=== PATIENT | male | born 1990 | race Caucasian/White ===

== ENCOUNTER 2017-06-25 18:22 | Emergency (ER) | payer BC ==
--- NOTE | 2017-06-25 19:17 | EDM.PDOC ---
ED HPI GENERAL MEDICAL PROBLEM - General Chief Complaint: Genitourinary Problem Stated Complaint: SWELLING IN PENIS Time Seen by Provider: 06/25/17 18:46 Source of Information: Reports: Patient History Limitations: Reports: No Limitations - History of Present Illness INITIAL COMMENTS - FREE TEXT/NARRATIVE: HISTORY AND PHYSICAL: History of present illness: Patient is a 26-year-old male who presents to the emergency room with complaints of penile swelling. He states he has noticed this on and off for the past several months after having sexual intercourse. He states that occasionally after sex the shaft of his penis will become painful, swell and the erythematous. Usually this resolves on its own within 1-2 hours. Morning he had sexual intercourse and noticed the symptoms which have not resolved over the past 10 hours. Denies any vigorous sexual activity. He states he is able to void without difficulty. Denies any dysuria or blood in his urine. Bowel movements are regular. Denies any abdominal pain, nausea, vomiting or diarrhea. Denies any testicular pain or swelling. Review of systems: As per history of present illness and below otherwise all systems reviewed and negative. Past medical history: As per history of present illness and as reviewed below otherwise noncontributory. Surgical history: As per history of present illness and as reviewed below otherwise noncontributory. Social history: No reported history of drug or alcohol abuse. Family history: As per history of present illness and as reviewed below otherwise noncontributory. Physical exam: Gen.: Nontoxic appearing 26-year-old male. Able to speak in full sentences without shortness of breath. Alert and oriented. HEENT: Atraumatic, normocephalic, pupils reactive, negative for conjunctival pallor or scleral icterus, mucous membranes moist, throat clear, neck supple, nontender, trachea midline. Lungs: Clear to auscultation, breath sounds equal bilaterally, chest nontender. Heart: S1S2, regular rate and rhythm Abdomen: Soft, nondistended, nontender. Negative for masses or hepatosplenomegaly. Negative for costovertebral tenderness. Pelvis: Stable nontender. Genitourinary: This was done with a masonry contractor at the bedside. The shaft of the penis appears erythematous, tender to palpation, moderate swelling noticed towards the distal end of the shaft of penis. There are no open sores, lesions or masses. The swelling does not appear to affect the meatus. No swelling or redness noted to the scrotum. No tenderness to the scrotum. Rectal: Deferred. Extremities: Atraumatic, negative for cords or calf pain. Neurovascular unremarkable. Neuro: Awake, alert, oriented. Cranial nerves II through XII unremarkable. Cerebellum unremarkable. Motor and sensory unremarkable throughout. Exam nonfocal. Patient reports that he is in a monogamous relationship over the past 5 years with his . His is at the bedside who is third trimester . She reports that she frequently gets checked and they have no concerns of STDs. She has no concerns of vaginal discharge, irritation or burning. We discussed that these symptoms may be allergy or contact related. Does not appear to be infectious. There are no lesions or satellite lesions which would make me feel this is fungal. Dr Olivera did look at the patient's genitalia with me. He agrees with plan of care. Mycolog will be prescribed to the applied twice daily over the next 3 days. He was informed to not participate any sexual activity while he is using this medication. He may use Benadryl [id number]-[id number] as needed. Instructed him to follow-up with Dr. Carrizales, the urologist for further management. Both patient and significant other are agreeable to plan of care and they deny any further questions at this time. Diagnostics: [] Therapeutics: [] Impression: [place] Plan: 1. Use the Mycolog cream twice daily 3 days. As we discussed do not have any sexual activity while using this topical cream. 2. Benadryl vbbj-lhl-pcmctbl as directed 3 days and then as needed after that. May apply gentle ice to the area to help decrease swelling 3. Follow-up with Dr. Carrizales, the urologist, for further management of these concerns. The ED as needed and as discussed. Definitive disposition and diagnosis as appropriate pending reevaluation and review of above. Penis Pain Score (Numeric/FACES): 6 - Related Data Allergies Allergy/AdvReac Type Severity Reaction Status Date / Time No Known Allergies Allergy Verified 06/25/17 18:51 Home Meds: Home Meds . [No Known Home Meds] 01/09/16 [History] Past Medical History - Past Health History Medical/Surgical History: Denies Medical/Surgical History Social & Family History - Family History Family Medical History: Noncontributory - Tobacco Use Smoking Status *Q: Current Every Day Smoker Years of Tobacco use: 12 Packs/Tins Daily: 1 - Recreational Drug Use Recreational Drug Use: Yes Drug Use in Last 12 Months: Yes Recreational Drug Type: Reports: Marijuana/Hashish ED ROS GENERAL - Review of Systems Review Of Systems: ROS reveals no pertinent complaints other than HPI. ED EXAM, RENAL/ - Physical Exam Exam: See Below (See dictation) Course - Vital Signs Last Recorded V/S: Last Vital Signs Temp 36.9 C 06/25/17 18:48 Pulse 80 06/25/17 18:48 Resp 16 06/25/17 18:48 BP 127/75 06/25/17 18:48 Pulse Ox 97 06/25/17 18:48 Departure - Departure Time of Disposition: 19:17 Disposition: Home, Self-Care 01 Clinical Impression: Balanitis - Discharge Information Referrals: PCP,None [Primary Care Provider] - Forms: ED Department Discharge Additional Instructions: My general discharge The following information is given to patients seen in the emergency department who are being discharged to home. This information is to outline your options for follow-up care. We provide all patients seen in our emergency department with a follow-up referral. The need for follow-up, as well as the timing and circumstances, are variable depending upon the specifics of your emergency department visit. If you don't have a primary care physician on staff, we will provide you with a referral. We always advise you to contact your personal physician following an emergency department visit to inform them of the circumstance of the visit and for follow-up with them and/or the need for any referrals to a consulting specialist. The emergency department will also refer you to a specialist when appropriate. This referral assures that you have the opportunity for follow-up care with a specialist. All of these measure are taken in an effort to provide you with optimal care, which includes your follow-up. Under all circumstances we always encourage you to contact your private physician who remains a resource for coordinating your care. When calling for follow-up care, please make the office aware that this follow-up is from your recent emergency room visit. If for any reason you are refused follow-up, please contact the [facility] Emergency Department at and asked to speak to the emergency department charge nurse. [facility] Professional Building [address] [place] [address], [address] [place] [address] 1. Use the Mycolog cream twice daily 3 days. As we discussed do not have any sexual activity while using this topical cream. 2. Benadryl hjqv-sbe-kimjycn as directed 3 days and then as needed after that. May apply gentle ice to the area to help decrease swelling 3. Follow-up with Dr. Carrizales, the urologist, for further management of these concerns. The ED as needed and as discussed.
[2017-06-25 19:27] VITALS: BP 123/73
== END 2017-06-25 19:29 | disposition home or self-care (01) ==
LOC: MW.ED 18:22
DX: N48.1 Balanitis (principal); F17.210 Nicotine dependence, cigarettes, uncomplicated
CPT/HCPCS: 99283; 99284

== ENCOUNTER 2019-05-22 21:28 | Emergency (ER) | payer BC ==
[2019-05-22] MEDS ORDERED: Ketorolac 60 MG/2 ML SDV IM ONE (21:51)
--- NOTE | 2019-05-22 21:56 | EDM.PDOC ---
ED HPI GENERAL MEDICAL PROBLEM - General Chief Complaint: Back Pain or Injury Stated Complaint: POSSIBLE KIDNEY INFECTION Time Seen by Provider: 05/22/19 21:36 - History of Present Illness INITIAL COMMENTS - FREE TEXT/NARRATIVE: HISTORY AND PHYSICAL: History of present illness: The patient is a 28-year-old male with no stated medical history but has had frequent episodes of lumbar lower back pain on and off over a long period of time, sometimes up to twice a week, for which he has seen a chiropractor but is never had a formal diagnosis of anything other than muscle strain and presents with bilateral lumbar back pain that is now radiating to his lower abdomen. He says that this discomfort started yesterday and he has had no direct trauma such as falls or blows to the area and is not flank pain and it is bilateral. He does not feel like it is in the bones and he has no radiation to his butt or his legs. He's had no bowel or bladder disturbances. He has been eating and drinking normally and he says that he was concerned because it radiated to his lower abdomen area and he feels very gassy. The patient says that he has had issues in the past with feeling bloated and gassy but again has not seen a provider for this. He's had nausea but no vomiting which again has been intermittent and not consistent. He's had no diarrhea and has been passing his urine normally without hematuria dysuria or frequency. He's had no fevers or chills and also complains of a dull headache. He has not taken any medications for this lower back pain in the last 24 hours and he says that when he gets these episodes of pain he doesn't take anything [id number] he usually does stretches and it improves. He came in tonight versus any other time he has had this because the stretching did not work and he had these other vague symptoms and he thought he should get it checked. He does not have a local provider. The patient also denies any testicular pain or swelling. Review of systems: As per history of present illness and below otherwise all systems reviewed and negative. Past medical history: As per history of present illness and as reviewed below otherwise noncontributory. Surgical history: As per history of present illness and as reviewed below otherwise noncontributory. Social history: No reported history of drug or alcohol abuse. Family history: As per history of present illness and as reviewed below otherwise noncontributory. Physical exam: General: Well-developed well-nourished man who is nontoxic and moves easily in the ED without distress. Vital signs were noted by me HEENT: Atraumatic, normocephalic, negative for conjunctival pallor or scleral icterus, mucous membranes moist, throat clear, neck supple, nontender, trachea midline. Lungs: Clear to auscultation, breath sounds equal bilaterally, chest nontender. Heart: S1S2, regular rate and rhythm no overt murmurs Abdomen: Soft, nondistended, nontender. Bowel sounds are slightly hyperactive and there is no tympany on percussion. Negative for masses or hepatosplenomegaly. Negative for costovertebral tenderness. Pelvis: Stable nontender. Genitourinary: Deferred. Rectal: Deferred. Extremities: Atraumatic, negative for cords or calf pain. Neurovascular unremarkable. Neuro: Awake, alert, oriented. Cranial nerves II through XII unremarkable. Cerebellum unremarkable. Motor and sensory unremarkable throughout. Exam nonfocal. Dorsi and plantar flexion is intact 5/5 inclusive of the great toe bilaterally and inversion and eversion of the feet is intact. Tone is normal and patellar reflexes are +2 over 4 Back: There are no midline step-offs tenderness defects of the thoracic or lumbar spine no posterior rib or posterior pelvis tenderness and no specific SI joint tenderness. The patient has mild discomfort with palpation of the lumbar paraspinals but there is no swelling defects or deformities. There is a negative straight leg rise bilaterally Diagnostics: CBC CMP UA with reflex abdominal x-rays lumbar spine x-rays Therapeutics: Toradol IM Patient is starting to feel better and is aware of all testing results including the incidental gallstones which have advised him about and the degenerative disc disease. In my conversation with this patient he does tell me that he does have very irregular bowel movements and is not eating a very fiber rich diet. Impression: Episodic lumbar back pain degenerative disc disease L5-S1 Nonspecific abdominal pain with constipation and incidental gallstones Definitive disposition and diagnosis as appropriate pending reevaluation and review of above. low back Pain Score (Numeric/FACES): 6 - Related Data Allergies Allergy/AdvReac Type Severity Reaction Status Date / Time No Known Allergies Allergy Verified 05/22/19 21:33 Home Meds: Home Meds . [No Known Home Meds] 01/09/16 [History] Past Medical History - Past Health History Medical/Surgical History: Denies Medical/Surgical History - Infectious Disease History Infectious Disease History: Reports: Chicken Pox - Past Surgical History Musculoskeletal Surgical History: Reports: Other (See Below) Other Musculoskeletal Surgeries/Procedures:: right knee sx Social & Family History - Family History Family Medical History: Noncontributory - Tobacco Use Smoking Status *Q: Current Every Day Smoker Years of Tobacco use: 15 Packs/Tins Daily: 1 - Recreational Drug Use Recreational Drug Use: No ED ROS GENERAL - Review of Systems Review Of Systems: ROS reveals no pertinent complaints other than HPI. ED EXAM, GENERAL - Physical Exam Exam: See Below (See dictation) Course - Vital Signs Last Recorded V/S: Last Vital Signs Temp 36.2 C 05/22/19 21:35 Pulse 61 05/22/19 21:35 Resp 18 05/22/19 21:35 BP 147/77 H 05/22/19 21:35 Pulse Ox 99 05/22/19 21:35 - Orders/Labs/Meds Labs: Laboratory Tests 05/22/19 05/22/19 05/22/19 Range/Units 21:50 22:17 22:17 WBC 9.16 (4.0-11.0) K/uL RBC 5.25 (4.50-5.90) M/uL Hgb 16.1 (13.0-17.0) g/dL Hct 46.0 (38.0-50.0) % MCV 87.6 (80.0-98.0) fL MCH 30.7 (27.0-32.0) pg MCHC 35.0 (31.0-37.0) g/dL RDW Std Deviation 44.8 (28.0-62.0) fl RDW Coeff of [place] 14 (11.0-15.0) % Plt Count 231 (150-400) K/uL MPV 10.20 (7.40-12.00) fL Neut % (Auto) 57.5 (48.0-80.0) % Lymph % (Auto) 32.4 (16.0-40.0) % [place] % (Auto) 8.4 (0.0-15.0) % Eos % (Auto) 1.3 (0.0-7.0) % Baso % (Auto) 0.4 (0.0-1.5) % Neut # (Auto) 5.3 (1.4-5.7) K/uL Lymph # (Auto) 3.0 H (0.6-2.4) K/uL [place] # (Auto) 0.8 (0.0-0.8) K/uL Eos # (Auto) 0.1 (0.0-0.7) K/uL Baso # (Auto) 0.0 (0.0-0.1) K/uL Nucleated RBC % 0.0 /100WBC Nucleated RBCs # 0 K/uL Sodium 141 (136-148) mmol/L Potassium 4.7 (3.5-5.1) mmol/L Chloride 102 (98-107) mmol/L Carbon Dioxide 29.1 (21.0-32.0) mmol/L BUN 18 (7.0-18.0) mg/dL Creatinine 1.1 (0.8-1.3) mg/dL Est Cr Clr Drug Dosing 111.98 mL/min Estimated GFR (MDRD) > 60.0 ml/min Glucose 113 H (74-106) mg/dL Calcium 8.9 (8.5-10.1) mg/dL Total Bilirubin 1.0 (0.2-1.0) mg/dL AST 17 (15-37) IU/L ALT 22 (14-63) IU/L Alkaline Phosphatase 66 (46-116) U/L Total Protein 7.6 (6.4-8.2) g/dL Albumin 4.3 (3.4-5.0) g/dL Globulin 3.3 (2.6-4.0) g/dL Albumin/Globulin Ratio 1.3 (0.9-1.6) Urine Color YELLOW Urine Appearance CLEAR Urine pH 6.0 (5.0-8.0) Ur Specific [place] 1.025 (1.001-1.035) Urine Protein NEGATIVE (NEGATIVE) mg/dL Urine Glucose (UA) NEGATIVE (NEGATIVE) mg/dL Urine Ketones TRACE H (NEGATIVE) mg/dL Urine Occult Blood NEGATIVE (NEGATIVE) Urine Nitrite NEGATIVE (NEGATIVE) Urine Bilirubin NEGATIVE (NEGATIVE) Urine Urobilinogen 0.2 (<2.0) EU/dL Ur Leukocyte Esterase NEGATIVE (NEGATIVE) Meds: Medications Discontinued Medications Generic Name Dose Route Start Last Admin Trade Name Clement PRN Reason Stop Dose Admin Ketorolac Tromethamine 60 mg 05/22/19 21:51 05/22/19 22:18 Toradol IM 05/22/19 21:52 60 mg ONETIME ONE Administration Departure - Departure Time of Disposition: 22:57 Disposition: Home, Self-Care 01 Condition: Good Clinical Impression: Degenerative disc disease at L5-S1 level, Lower abdominal pain - Discharge Information Referrals: PCP,None [Primary Care Provider] - Forms: ED Department Discharge Additional Instructions: The following information is given to patients seen in the emergency department who are being discharged to home. This information is to outline your options for follow-up care. We provide all patients seen in our emergency department with a follow-up referral. The need for follow-up, as well as the timing and circumstances, are variable depending upon the specifics of your emergency department visit. If you don't have a primary care physician on staff, we will provide you with a referral. We always advise you to contact your personal physician following an emergency department visit to inform them of the circumstance of the visit and for follow-up with them and/or the need for any referrals to a consulting specialist. The emergency department will also refer you to a specialist when appropriate. This referral assures that you have the opportunity for followup care with a specialist. All of these measure are taken in an effort to provide you with optimal care, which includes your followup. Under all circumstances we always encourage you to contact your private physician who remains a resource for coordinating your care. When calling for followup care, please make the office aware that this follow-up is from your recent emergency room visit. If for any reason you are refused follow-up, please contact the [facility] emergency department at and ask to speak to the emergency department charge nurse. Primary care- Internal Medicine and Family [address] [address] Try to do all body movements and position changes with slightly more time and more care and use good body mechanics to protect her back. These follow-up with one of our providers in the clinic for further caliber and evaluation of your episodes of back pain. Try to start eating a low-fat higher fiber diet due to the gallstones on your x-rays which is an incidental finding but that you should be aware of and follow-up for if you start having any upper abdominal pain. Use moty-sra-ntbsiqu Tylenol or ibuprofen for pain management as well as heat and ice or pain patches [id number]-[id number] as you choose for your back pain episodes. Return to ER as needed and as discussed. You may also take a fiber supplement or take an ziyd-yhb-syekfiq stool softener to assist movement of the stool seen in the x-rays and to keep your bowels more regular.
--- NOTE | 2019-05-22 22:16 | CR ---
Indication: Low back pain. Technique: Three views of the lumbar spine were obtained. Comparison: None Findings: The alignment of the lumbar spine is within normal limits. The vertebral body heights are well maintained. Intervertebral disc space narrowing is identified at L5-S1. No fracture or subluxation is identified. Impression: Degenerative changes of the lower lumbar spine. Dictated by Audra Joseph MD @ May 22 2019 10:15PM Signed by Dr. Audra Joseph @ May 22 2019 10:15PM
--- NOTE | 2019-05-22 22:18 | CR ---
Indication: Midabdominal pain. Technique: AP views of the abdomen and pelvis were obtained. Comparison: None Findings: No free air is identified. Gallstones are identified in the right upper quadrant. The bowel gas pattern is nonobstructive. A small to moderate amount of stool is identified within the colon. Impression: Gallstones. Dictated by Audra Joseph MD @ May 22 2019 10:16PM Signed by Dr. Audra Joseph @ May 22 2019 10:16PM
[2019-05-22 22:45] LABS: BLOOD UREA NITROGEN,BUN 18 mg/dL (7.0-18.0); CARBON DIOXIDE,CO2 29.1 mmol/L (21.0-32.0); CHLORIDE,CL 102 mmol/L (98-107); GLUCOSE RANDOM 113 mg/dL (74-106); POTASSIUM,K 4.7 mmol/L (3.5-5.1); SODIUM,NA 141 mmol/L (136-148)
[2019-05-22 23:02] VITALS: BP 137/92; PULSE 66
== END 2019-05-22 23:05 | disposition home or self-care (01) ==
LOC: MW.ED 21:28
DX: M51.37 Other intervertebral disc degeneration, lumbosacral region (principal); K59.00 Constipation, unspecified; K80.80 Other cholelithiasis without obstruction; F17.210 Nicotine dependence, cigarettes, uncomplicated
CPT/HCPCS: 36415; 72100; 74019; 80053; 81003; 85025; 96372; 99284; J1885

== ENCOUNTER 2019-05-29 07:47 | Day surgery (SDC) | payer BC ==
[~2019-05-29 07:47] MED LIST: Glycopyrrolate 0.2 MG/ML SDV ONE; Lactated Ringers 1,000 ML IV SCH; Lidocaine 2% 5 ML SDV ONE; Midazolam 1 MG/ML 2 ML SDV ONE; Neostigmine Methylsulfate 1 MG/ML 5 ML Syringe ONE; Ondansetron 4 MG/2 ML SDV ONE; Propofol 200 MG/20 ML SDV ONE; cefOXitin 2 GM in Premix Bag 1 BAG IV ONE
[2019-05-29] MEDS ORDERED: Rocuronium 100 MG/10 ML Syringe ONE (07:48)
[2019-05-29] MEDS ORDERED: fentaNYL 250 MCG/5 ML SDV ONE (07:48)
[2019-05-29] MEDS ORDERED: Bupivacaine 0.5% 10 ML SDV ONE (08:11)
[2019-05-29] MEDS ORDERED: ceFAZolin 1 GM Vial ONE (08:12)
--- NOTE | 2019-05-29 08:18 | PCM.PREANE ---
Preanesthetic Assessment - Anesthesia/Transfusion/Family Hx Anesthesia History: Prior Anesthesia Without Reaction Family History of Anesthesia Reaction: No Transfusion History: No Prior Transfusion(s) - Review of Systems General: No Symptoms Pulmonary: No Symptoms Cardiovascular: No Symptoms Gastrointestinal: No Symptoms Neurological: No Symptoms Other: Reports: None - Physical Assessment NPO Status Date: 05/28/19 Vital Signs: Last Vital Signs Temp 97.2 F 05/29/19 08:03 Pulse 86 05/29/19 08:03 Resp 14 05/29/19 08:03 BP 137/67 05/29/19 08:03 Pulse Ox 100 05/29/19 08:03 Height: 6 ft 1 in Weight: 77.564 kg ASA Class: 2 Mental Status: Alert & Oriented x3 ROM/Head Extension: Full Lungs: Clear to Auscultation, Normal Respiratory Effort Cardiovascular: Regular Rate, Regular Rhythm - Allergies Allergies/Adverse Reactions: Allergies Allergy/AdvReac Type Severity Reaction Status Date / Time latex Allergy Rash Verified 05/25/19 16:37 - Blood Blood Available: No - Anesthesia Plan Pre-Op Medication Ordered: None - Acknowledgements Anesthesia Type Planned: General Anesthesia Pt an Appropriate Candidate for the Planned Anesthesia: Yes Alternatives and Risks of Anesthesia Discussed w Pt/Guardian: Yes Pt/Guardian Understands and Agrees with Anesthesia Plan: Yes Additional Comments: PMH: smoker PLAN: get PreAnesthesia Questionnaire - Past Health History Medical/Surgical History: Denies Medical/Surgical History HEENT History: Reports: None Cardiovascular History: Reports: None Respiratory History: Reports: Other (See Below) Other Respiratory History: 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 Gastrointestinal History: Reports: Cholelithiasis, Chronic Constipation, Other ( See Below) Other Gastrointestinal History: occasional heartburn Genitourinary History: Reports: None Musculoskeletal History: Reports: Fracture Other Musculoskeletal History: hx fx wrist Neurological History: Reports: Concussion Psychiatric History: Reports: None Endocrine/Metabolic History: Reports: None Hematologic History: Reports: None Immunologic History: Reports: None Oncologic (Cancer) History: Reports: None Dermatologic History: Reports: Other (See Below) Other Dermatologic History: ichthyosis - Infectious Disease History Infectious Disease History: Reports: Chicken Pox - Past Surgical History Head Surgeries/Procedures: Reports: None HEENT Surgical History: Reports: None Cardiovascular Surgical History: Reports: None Respiratory Surgical History: Reports: None GI Surgical History: Reports: None Male Surgical History: Reports: None Endocrine Surgical History: Reports: None Neurological Surgical History: Reports: None Musculoskeletal Surgical History: Reports: Arthroscopic Knee, Other (See Below) Other Musculoskeletal Surgeries/Procedures:: right knee sx Oncologic Surgical History: Reports: None Dermatological Surgical History: Reports: None - SUBSTANCE USE Smoking Status *Q: Current Every Day Smoker Tobacco Use Within Last Twelve Months: Cigarettes - HOME MEDS Home Medications: Home Meds Ketorolac [Toradol] 10 mg PO QID PRN 05/25/19 [History] Polyethylene Glycol 3350 [Miralax] 1 dose PO ASDIRECTED PRN 05/25/19 [History] - CURRENT (IN HOUSE) MEDS Current Meds: Current Medications Lactated Ringer's (Ringers, Lactated) 1,000 mls @ 125 mls/hr IV ASDIRECTED RUDY Last Admin: 05/29/19 08:10 Dose: 125 mls/hr Discontinued Medications Bupivacaine HCl (Sensorcaine-Mpf 0.5%) Confirm Administered Dose 30 ml .ROUTE .STK-MED ONE Stop: 05/29/19 08:12 Cefazolin Sodium (Ancef) Confirm Administered Dose 1 gm .ROUTE .STK-MED ONE Stop: 05/29/19 08:13 Fentanyl (Sublimaze) Confirm Administered Dose 250 mcg .ROUTE .STK-MED ONE Stop: 05/29/19 07:49 Glycopyrrolate (Robinul) Confirm Administered Dose 0.4 mg .ROUTE .STK-MED ONE Stop: 05/29/19 07:48 Cefoxitin Sodium 2 gm/ Premix 50 mls @ 100 mls/hr IV ONETIME ONE Stop: 05/29/19 07:29 Lidocaine (Xylocaine-Mpf 2%) Confirm Administered Dose 5 ml .ROUTE .STK-MED ONE Stop: 05/29/19 07:48 Midazolam HCl (Versed 1 Mg/Ml) Confirm Administered Dose 2 mg .ROUTE .STK-MED ONE Stop: 05/29/19 07:48 Neostigmine Methylsulfate (Neostigmine) Confirm Administered Dose 5 mg .ROUTE .STK-MED ONE Stop: 05/29/19 07:48 Ondansetron HCl (Zofran) Confirm Administered Dose 4 mg .ROUTE .STK-MED ONE Stop: 05/29/19 07:48 Propofol (Diprivan 20 Ml) Confirm Administered Dose 200 mg .ROUTE .STK-MED ONE Stop: 05/29/19 07:48 Rocuronium [place] (Zemuron) Confirm Administered Dose 100 mg .ROUTE .STK-MED ONE Stop: 05/29/19 07:49
[2019-05-29] MEDS ORDERED: Scopolamine 1.5 MG Transdermal Patch ONE (08:19)
[2019-05-29] MEDS ORDERED: cefOXitin 1 GM Vial ONE (08:59)
[2019-05-29] MEDS ORDERED: Dexamethasone 4 MG/ML 5 ML MDV ONE (09:07)
[2019-05-29] MEDS ORDERED: fentaNYL 100 MCG/2 ML SDV ONE (10:17)
[2019-05-29] MEDS ORDERED: Acetaminophen/HYDROcodone 325-5 MG Tab PO PRN (10:33)
[2019-05-29] MEDS ORDERED: Morphine 10 MG/ML Syringe IVPUSH PRN (10:33)
--- NOTE | 2019-05-29 10:39 | PCM.OPNOTE ---
- General Post-Op/Procedure Note Date of Surgery/Procedure: 05/29/19 Operative Procedure(s): Laparoscopic cholecystectomy Pre Op Diagnosis: Cholelithiasis Post-Op Diagnosis: Cholelithiasis with acute cholecystitis Anesthesia Technique: General ET Tube (ASA II) Primary Surgeon: Krishna Schmitt [employer] Supervisor: Ana Paula Peters Fluid Replacement, Intraop: 650 Output, Urine Amount: 125 EBL in mLs: 25 Condition: Good Free Text/Narrative:: DICTATION 239818 CPT CODE 81717
[2019-05-29] MEDS ORDERED: Ketorolac 30 MG/ML SDV ONE (10:40)
[2019-05-29] MEDS ORDERED: Lactated Ringers 1,000 ML IV SCH (10:45)
[2019-05-29] MEDS: HYDROmorphone 2 MG/ML Syringe IVPUSH ONE ×2 (10:59→11:08)
[2019-05-29] MEDS ORDERED: fentaNYL 100 MCG/2 ML SDV IVPUSH PRN (11:21)
--- NOTE | 2019-05-29 11:46 | PCM.POSTAN ---
POST ANESTHESIA ASSESSMENT - MENTAL STATUS Mental Status: Alert, Oriented - VITAL SIGNS Vital Signs: Last Vital Signs Temp 98.6 F 05/29/19 10:32 Pulse 84 05/29/19 11:22 Resp 15 05/29/19 11:22 BP 128/69 05/29/19 11:22 Pulse Ox 96 05/29/19 11:22 - RESPIRATORY Respiratory Status: Respiratory Rate WNL, Airway Patent, O2 Saturation Stable - CARDIOVASCULAR CV Status: Pulse Rate WNL, Blood Pressure Stable - GASTROINTESTINAL GI Status: No Symptoms - POST OP HYDRATION Hydration Status: Adequate & Stable
--- NOTE | 2019-05-29 13:58 | PCM48HPAN ---
Post Anesthesia Note - EVALUATION WITHIN 48HRS OF ANESTHETIC Vital Signs in Normal Range: Yes Patient Participated in Evaluation: Yes Respiratory Function Stable: Yes Airway Patent: Yes Cardiovascular Function Stable: Yes Hydration Status Stable: Yes Pain Control Satisfactory: Yes Nausea and Vomiting Control Satisfactory: Yes Mental Status Recovered: Yes Vital Signs: Last Vital Signs Temp 98.8 F 05/29/19 11:30 Pulse 81 05/29/19 12:45 Resp 14 05/29/19 12:45 BP 127/61 05/29/19 12:45 Pulse Ox 97 05/29/19 12:45
--- NOTE | 2019-05-29 14:51 | OR ---
SURGEON: Krishna Schmitt M.D. DATE OF PROCEDURE: 05/29/2019 OPERATION PERFORMED: Laparoscopic cholecystectomy. PRIMARY SURGEON: Krishna Schmitt M.D. NURSING MANAGER: bankruptcy assistant: TARSHA Meng, assistant professor student. ANESTHESIA: General endotracheal. ASA CLASSIFICATION: II. PREOPERATIVE DIAGNOSIS: Symptomatic cholelithiasis. POSTOPERATIVE DIAGNOSIS: Cholelithiasis with acute cholecystitis and multiple adhesions to the gallbladder. ESTIMATED BLOOD LOSS: 25 mL. INTRAOPERATIVE FLUID REPLACEMENT: 650 mL of crystalloid. INTRAOPERATIVE URINE OUTPUT: 125 mL. DESCRIPTION OF PROCEDURE: The patient was taken to the operating room, placed on the operating table in the supine position. Time-out was called for appropriate identification of the patient and procedure. Thigh-high TEDs and sequential compression boots were placed. Following satisfactory attainment of general endotracheal anesthesia, a Graves catheter was placed in the patient's urinary bladder. The abdomen was then prepped with DuraPrep solution and sterile drapes were applied. The skin just below the umbilicus was infiltrated with 0.5% Marcaine solution. The skin incision was made and deepened through the subcutaneous tissue obtaining hemostasis with the use of electrocautery. The Veress needle was introduced into the peritoneal cavity. Saline drop test was positive. Carbon dioxide pneumoperitoneum was established with the relief set at 13 cm of water. Once a satisfactory pneumoperitoneum was established, 5 mm camera and port were placed through the infraumbilical incision. The patient was now positioned with his feet down and rolled to the left. Under camera vision, 12 mm subxiphoid, 5 mm midclavicular, and 5 mm anterior axillary ports were placed. Each incision had preemptively been infiltrated with 0.5% Marcaine solution. Small bleeding sites had been electrocoagulated. Multiple adhesions were present through the gallbladder. These were taken down with blunt dissection. Once the gallbladder was mobilized, I was able to grasp this with 2-prong grasper. Our dissection was carried into the Calot's cystohepatic triangle where the cystic duct and cystic artery were serially identified. Good critical view of each structure was obtained prior to hemoclipping. Each structure was doubly hemoclipped proximally and distally before division with the laparoscopic Metzenbaum scissor. Using the hook cautery, the gallbladder was dissected away from its bed. A small amount of bile but no stones were spilled. Once the gallbladder was amputated, this was placed in an EndoCatch and maintained in situ. The right upper quadrant was irrigated with 1% Ancef solution and all fluid was aspirated. Surgicel was placed into the bed of the gallbladder. The right hemidiaphragm was then irrigated with 250 mL of saline containing 20 mL of 0.5% Marcaine solution. That fluid was left in place. Under camera vision, the EndoCatch containing gallbladder was removed through the 12 mm port site. Again, under camera vision, both 5 mm midclavicular and anterior axillary ports were removed, and finally, the infraumbilical camera and port were removed. Wounds were inspected for hemostasis and small bleeding sites were electrocoagulated. The 12 mm port site fascia had to be opened a little bit more to allow for removal of the gallbladder. The fascial defect was then repaired with interrupted 0 Vicryl sutures. The subxiphoid and infraumbilical incisions were closed in 2 layers approximating the subcutaneous tissue with 3-0 Vicryl and the skin with subcuticular 4-0 Monocryl. The anterior axillary and midclavicular incisions were closed with subcuticular 4-0 Monocryl. All incisions were Steri-Stripped and dressed with sterile Tegaderm pads. Graves catheter was removed prior to emergence from anesthesia. Following emergence from anesthesia and extubation, the patient was taken to recovery room in stable condition. KENRICK PAGAN /[id number] FRENCH
[2019-05-29 15:58] VITALS: BP 123/70; PULSE 78
== END 2019-05-29 15:58 | disposition home or self-care (01) ==
LOC: MW.SDS 07:47
PROVIDERS: ATTEND Surgery
DX: K80.12 Calculus of gallbladder with acute and chronic cholecystitis without obstruction (principal); K82.8 Other specified diseases of gallbladder; M51.37 Other intervertebral disc degeneration, lumbosacral region; F17.210 Nicotine dependence, cigarettes, uncomplicated; Z79.899 Other long term (current) drug therapy
CPT/HCPCS: 47562; 88304; A9270; J0690; J0694; J1100; J1170; J2001; J2250; J2405; J2704; J3010; J3490; J7120

== ENCOUNTER 2021-05-06 21:12 | Emergency (ER) | payer BC ==
--- NOTE | 2021-05-06 21:56 | EDM.PDOC ---
<Carlos Harvey E - Last Filed: 05/06/21 21:48> ED HPI GENERAL MEDICAL PROBLEM - General Chief Complaint: Chest Pain Stated Complaint: CHEST PAINS, ARM PAIN Time Seen by Provider: 05/06/21 21:48 Source of Information: Reports: Patient History Limitations: Reports: No Limitations - History of Present Illness INITIAL COMMENTS - FREE TEXT/NARRATIVE: HISTORY AND PHYSICAL: History of present illness: Patient is a 30-year-old male who presents to the emergency room with complaints of chest pain. He states he was bowling when he suddenly had midsternal/epiga stric chest pain, he started to hyperventilate and felt his hands get tingling. He was able to calm down but decided to come to the emergency room as he was concerned due to him having drank alcohol and taking a muscle relaxer. Patient denies any fever, chills, headache, change in vision, syncope or near syncope. Denies any chest pain, back pain, shortness of breath or cough. Denies any abdominal pain, nausea, vomiting, diarrhea, constipation or dysuria. Has not noted any blood in urine or stool. Patient has been eating and drinking appropriately. Review of systems: As per history of present illness and below otherwise all systems reviewed and negative. Past medical history: As per history of present illness and as reviewed below otherwise noncontributory. Surgical history: As per history of present illness and as reviewed below otherwise noncontributory. Social history: See social history for further information Family history: As per history of present illness and as reviewed below otherwise noncontributory. Physical exam: General: Well developed and well nourished. Alert and orientated x 3. Nontoxic in appearance and in no acute distress. Vital signs are stable and have been reviewed by me. Nursing notes were reviewed. HEENT: Atraumatic, normocephalic, pupils equal and reactive bilaterally, negative for conjunctival pallor or scleral icterus, mucous membranes moist, TMs normal bilaterally, throat clear, neck supple, nontender, trachea midline. No drooling or trismus noted. No meningeal signs. No hot potato voice noted. Lungs: Clear to auscultation bilaterally. No wheezes, rales, or rhonchi. Chest nontender. Normal work of breathing, no accessory muscles used. Heart: S1S2, regular rate and rhythm without overt murmur, gallops, or rubs. No JVD. No peripheral edema Abdomen: Soft, nondistended, nontender. Normoactive bowel sounds. Negative for masses or costovertebral tenderness. Skin: Intact, warm, dry. No lesions or rashes noted. Hematologic: No petechiae or purpra. Mucosa appropriate color and normal nail bed color and refill. Extremities: Atraumatic, moves all extremities per self without difficulty or deficits, negative for cords or calf pain. Neurovascular unremarkable. Neuro: Awake, alert, oriented. Cranial nerves II through XII unremarkable. Cerebellum unremarkable. Motor and sensory unremarkable throughout. Exam nonfocal. Psychiatric: Mood and affect are appropriate. Normal thought process. Answering questions appropriately. Please note that the patient was seen and evaluated during the 2019 SARS-CoV-2 novel coronavirus pandemic period. Community viral transmission is ongoing at time of this encounter and the emergency department is operating under pandemic response procedures. Medical Decision Making: Patient's physical exam is unremarkable. His vital signs are stable. We will do basic lab work. Patient is agreeable. Labs are pending; report given to Andrew. He will assume care of this patient and treat/disposition appropriately. Diagnostics: CBC, CMP, troponin, EKG, chest x-ray Therapeutics: None Definitive disposition and diagnosis as appropriate pending reevaluation and review of above. Left Chest Pain Score (Numeric/FACES): 5 - Related Data Allergies Allergy/AdvReac Type Severity Reaction Status Date / Time latex Allergy Rash Verified 05/25/19 16:37 Home Meds: Home Meds Ketorolac [Toradol] 10 mg PO QID PRN 05/25/19 [History] polyethylene glycoL 3350 [Miralax] 1 dose PO ASDIRECTED PRN 05/25/19 [History] Acetaminophen/HYDROcodone [Frankewing 325-5 MG] 1 tab PO Q4H PRN 5 Days #20 tablet 05/29/19 [Rx] Past Medical History - Past Health History Medical/Surgical History: Denies Medical/Surgical History HEENT History: Reports: None Cardiovascular History: Reports: None Respiratory History: Reports: Other (See Below) Other Respiratory History: 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 Gastrointestinal History: Reports: Cholelithiasis, Chronic Constipation, Other (See Below) Other Gastrointestinal History: occasional heartburn Genitourinary History: Reports: None Musculoskeletal History: Reports: Fracture Other Musculoskeletal History: hx fx wrist Neurological History: Reports: Concussion Psychiatric History: Reports: None Endocrine/Metabolic History: Reports: None Hematologic History: Reports: None Immunologic History: Reports: None Oncologic (Cancer) History: Reports: None Dermatologic History: Reports: Other (See Below) Other Dermatologic History: ichthyosis - Infectious Disease History Infectious Disease History: Reports: Chicken Pox - Past Surgical History Head Surgeries/Procedures: Reports: None HEENT Surgical History: Reports: None Cardiovascular Surgical History: Reports: None Respiratory Surgical History: Reports: None GI Surgical History: Reports: None Male Surgical History: Reports: None Endocrine Surgical History: Reports: None Neurological Surgical History: Reports: None Musculoskeletal Surgical History: Reports: Arthroscopic Knee, Other (See Below) Other Musculoskeletal Surgeries/Procedures:: right knee sx Oncologic Surgical History: Reports: None Dermatological Surgical History: Reports: None Social & Family History - Family History Family Medical History: No Pertinent Family History - Tobacco Use Tobacco Use Status *Q: Current Every Day Tobacco User Years of Tobacco use: 15 Packs/Tins Daily: 1 - Caffeine Use Caffeine Use: Reports: Coffee - Recreational Drug Use Recreational Drug Use: No Departure - Departure Disposition: Home, Self-Care 01 Clinical Impression: Chest pain Instructions: Nonspecific Chest Pain, Adult Referrals: Ke Lewis MD [Primary Care Provider] - Forms: ED Department Discharge Additional Instructions: Return for increased pain, shortness of breath, fever, change or worsening condition or lack of improvement. We have provided you with a copy of your laboratory test results. Your liver tests and lipase are somewhat elevated. Please have your primary care doctor reevaluate you in the next several days and recheck your blood work and do additional testing and investigations. The following information is given to patients seen in the emergency department who are being discharged to home. This information is to outline your options for follow-up care. We provide all patients seen in our emergency department with a follow-up referral. The need for follow-up, as well as the timing and circumstances, are variable depending upon the specifics of your emergency department visit. If you don't have a primary care physician on staff, we will provide you with a referral. We always advise you to contact your personal physician following an emergency department visit to inform them of the circumstance of the visit and for follow-up with them and/or the need for any referrals to a consulting specialist. The emergency department will also refer you to a specialist when appropriate. This referral assures that you have the opportunity for follow-up care with a specialist. All of these measure are taken in an effort to provide you with optimal care, which includes your follow-up. Primary care clinics in the area: [facility] [address] [place] [id number] [place] [address] Under all circumstances we always encourage you to contact your private physician who remains a resource for coordinating your care. When calling for follow-up care, please make the office aware that this follow-up is from your recent emergency room visit. If for any reason you are refused follow-up, please contact the [facility] Emergency Department at and asked to speak to the emergency department charge nurse. Sepsis Event Note (ED) - Evaluation Sepsis Screening Result: No Definite Risk <Baldo Morales - Last Filed: 05/07/21 02:14> ED ROS GENERAL - Review of Systems Review Of Systems: See Below ED EXAM, GENERAL - Physical Exam Exam: See Below #1 Interpretation Time: 02:10 EKG Interpretation Comments: 9:15 PM. 80, normal sinus rhythm, J-point elevation in anterior precordial leads consistent with early repolarization. Otherwise nonspecific ST/T findings Course - Vital Signs Text/Narrative:: Differential diagnosis: ACS, pneumothorax, GERD, PE, pancreatitis, hepatitis, retained stone after cholecystectomy, GERD, musculoskeletal, other Patient presents with chest pain. EKG is nonspecific with negative cardiac enzymes and chest x-ray. Patient is not in any pain anymore. There is no hypoxia or respiratory distress. Patient states he was having some abdominal pain. There is questionably very mild tenderness to the right upper quadrant. Patient states he had a few drinks at home but I thought this was less likely the cause of this degree of his elevation of LFTs. Patient held related lipase in addition. CT scan shows no remarkable findings. Perhaps this is from EtOH since AST to ALT ratio was elevated. Nonetheless I cannot exclude early pathology such as early retained stone with cholangitis versus hepatitis versus other. Nonetheless the patient remains completely asymptomatic. Abdomen upon final examination soft nontender nondistended. He is instructed to follow-up with his primary care doctor this week for repeat laboratory testing and evaluation. And to return for any fevers abdominal pain chest pain shortness of breath or change or worsening condition Last Recorded V/S: Last Vital Signs Temp 36.2 C 05/06/21 21:16 Pulse 67 05/07/21 01:55 Resp 18 05/07/21 01:55 BP 104/60 05/07/21 01:55 Pulse Ox 99 05/07/21 01:55 - Orders/Labs/Meds Labs: Laboratory Tests 05/06/21 05/06/21 05/06/21 Range/Units 21:48 21:48 21:48 WBC 8.36 (4.0-11.0) K/uL RBC 4.63 (4.50-5.90) M/uL Hgb 14.2 (13.0-17.0) g/dL Hct 39.8 (38.0-50.0) % MCV 86.0 (80.0-98.0) fL MCH 30.7 (27.0-32.0) pg MCHC 35.7 (31.0-37.0) g/dL RDW Std Deviation 43.3 (28.0-62.0) fl RDW Coeff of Conchita 14 (11.0-15.0) % Plt Count 220 (150-400) K/uL MPV 10.10 (7.40-12.00) fL Neut % (Auto) 56.2 (48.0-80.0) % Lymph % (Auto) 34.3 (16.0-40.0) % Ripley % (Auto) 7.7 (0.0-15.0) % Eos % (Auto) 1.4 (0.0-7.0) % Baso % (Auto) 0.4 (0.0-1.5) % Neut # (Auto) 4.7 (1.4-5.7) K/uL Lymph # (Auto) 2.9 H (0.6-2.4) K/uL Ripley # (Auto) 0.6 (0.0-0.8) K/uL Eos # (Auto) 0.1 (0.0-0.7) K/uL Baso # (Auto) 0.0 (0.0-0.1) K/uL Nucleated RBC % 0.0 /100WBC Nucleated RBCs # 0 K/uL D-Dimer, Quantitative (0.0-0.50) mg/L FEU Sodium 140 (136-148) mmol/L Potassium 3.2 L (3.5-5.1) mmol/L Chloride 102 (98-107) mmol/L Carbon Dioxide 25.2 (21.0-32.0) mmol/L BUN 24 H (7.0-18.0) mg/dL Creatinine 1.1 (0.8-1.3) mg/dL Est Cr Clr Drug Dosing 103.00 mL/min Estimated GFR (MDRD) > 60.0 ml/min Glucose 99 (74-106) mg/dL Calcium 8.9 (8.5-10.1) mg/dL Total Bilirubin 0.9 (0.2-1.0) mg/dL AST 483 H (15-37) IU/L ALT 241 H (14-63) IU/L Alkaline Phosphatase 80 (46-116) U/L Troponin I < 0.050 (0.000-0.056) ng/mL Total Protein 6.8 (6.4-8.2) g/dL Albumin 4.0 (3.4-5.0) g/dL Globulin 2.8 (2.6-4.0) g/dL Albumin/Globulin Ratio 1.4 (0.9-1.6) Lipase (73-393) U/L 05/06/21 05/06/21 Range/Units 21:48 21:48 WBC (4.0-11.0) K/uL RBC (4.50-5.90) M/uL Hgb (13.0-17.0) g/dL Hct (38.0-50.0) % MCV (80.0-98.0) fL MCH (27.0-32.0) pg MCHC (31.0-37.0) g/dL RDW Std Deviation (28.0-62.0) fl RDW Coeff of Conchita (11.0-15.0) % Plt Count (150-400) K/uL MPV (7.40-12.00) fL Neut % (Auto) (48.0-80.0) % Lymph % (Auto) (16.0-40.0) % Ripley % (Auto) (0.0-15.0) % Eos % (Auto) (0.0-7.0) % Baso % (Auto) (0.0-1.5) % Neut # (Auto) (1.4-5.7) K/uL Lymph # (Auto) (0.6-2.4) K/uL Ripley # (Auto) (0.0-0.8) K/uL Eos # (Auto) (0.0-0.7) K/uL Baso # (Auto) (0.0-0.1) K/uL Nucleated RBC % /100WBC Nucleated RBCs # K/uL D-Dimer, Quantitative < 0.19 (0.0-0.50) mg/L FEU Sodium (136-148) mmol/L Potassium (3.5-5.1) mmol/L Chloride (98-107) mmol/L Carbon Dioxide (21.0-32.0) mmol/L BUN (7.0-18.0) mg/dL Creatinine (0.8-1.3) mg/dL Est Cr Clr Drug Dosing mL/min Estimated GFR (MDRD) ml/min Glucose (74-106) mg/dL Calcium (8.5-10.1) mg/dL Total Bilirubin (0.2-1.0) mg/dL AST (15-37) IU/L ALT (14-63) IU/L Alkaline Phosphatase (46-116) U/L Troponin I (0.000-0.056) ng/mL Total Protein (6.4-8.2) g/dL Albumin (3.4-5.0) g/dL Globulin (2.6-4.0) g/dL Albumin/Globulin Ratio (0.9-1.6) Lipase 407 H (73-393) U/L Meds: Medications Discontinued Medications Generic Name Dose Route Start Last Admin Trade Name Freq PRN Reason Stop Dose Admin Iopamidol 100 ml 05/07/21 00:42 05/07/21 01:15 Iopamidol 755 Mg/Ml 100 Ml Bottle IVPUSH 05/07/21 00:43 100 ml ONETIME ONE Administration Departure - Departure Time of Disposition: 02:13 Condition: Good Sepsis Event Note (ED) - Focused Exam Vital Signs: Vital Signs Temp Pulse Resp BP Pulse Ox 05/07/21 01:55 67 18 104/60 99 05/06/21 22:48 72 18 112/38 L 96 05/06/21 21:16 36.2 C 79 18 125/64 100
[2021-05-06 22:16] LABS: BLOOD UREA NITROGEN,BUN 24 mg/dL (7.0-18.0); CARBON DIOXIDE,CO2 25.2 mmol/L (21.0-32.0); CHLORIDE,CL 102 mmol/L (98-107); GLUCOSE RANDOM 99 mg/dL (74-106); POTASSIUM,K 3.2 mmol/L (3.5-5.1); SODIUM,NA 140 mmol/L (136-148)
--- NOTE | 2021-05-06 22:26 | CR ---
INDICATION: Chest pain TECHNIQUE: Chest radiograph 1 view on 2 films COMPARISON: None FINDINGS: Mediastinum: The mediastinum is normal in appearance. The heart silhouette is normal in size and morphology. Lung: Both lungs are unremarkable in appearance. No sign of pleural effusion seen. No pneumothorax is identified. Bone and Soft tissue: Unremarkable for age. IMPRESSION: 1. No acute cardiopulmonary disease is seen. Dictated by: Perry Oro MD @ 05/06/2021 22:24:05 (Electronically Signed)
[2021-05-07] MEDS ORDERED: Iopamidol 755 Mg/ML 100 ML Bottle IVPUSH ONE (00:42)
[2021-05-07 01:55] VITALS: BP 104/60; PULSE 67
--- NOTE | 2021-05-07 02:00 | CT ---
Indication: Abdominal pain Technique: Contrast enhanced axial CT imaging through the abdomen and pelvis. 100 mL Isovue 370 contrast agent was administered intravenously. Sagittal and coronal reconstructions are provided. Comparison: None Findings: No abnormalities are demonstrated relating to the liver, spleen, pancreas, adrenal glands, and kidneys. Cholecystectomy clips are noted. The portal vein is patent. The abdominal aorta is normal in caliber. There is no abdominal or pelvic lymphadenopathy. The urinary bladder is unremarkable. The stomach and duodenum are unremarkable. There is no small bowel wall thickening or abnormal distention. The appendix is not visualized. There is no colonic wall thickening, mesenteric edema, or intraperitoneal free fluid. The osseous structures are unremarkable. The included lung bases are clear. Impression: No acute process demonstrated in the abdomen and pelvis. Nonvisualized appendix. Please note that all CT scans at this facility use dose modulation, iterative reconstruction, and/or weight-based dosing when appropriate to reduce radiation dose to as low as reasonably achievable. Dictated by Hans Harris MD @ 05/07/2021 1:58:06 AM (Electronically Signed)
== END 2021-05-07 02:17 | disposition home or self-care (01) ==
LOC: MW.ED 21:12
DX: R07.2 Precordial pain (principal); Z72.0 Tobacco use; Z91.040 Latex allergy status
CPT/HCPCS: 36415; 71045; 74177; 80053; 83690; 84484; 85025; 85379; 93005; 99285; Q9967